=== PATIENT | male | born 1980 | race Caucasian/White ===

== ENCOUNTER 2021-02-11 23:25 | Emergency (ER) | payer OTHER ==
[~2021-02-11] VITALS: Ht 160 cm; Wt 65.8 kg
[2021-02-12] MEDS ORDERED: IBUPROFEN 800800 MG PO (01:53)
[2021-02-12] MEDS ORDERED: ACETAMINOPHEN-1 EAC2 PO (01:53)
[2021-02-12 02:08] VITALS: BP 144/101
== END 2021-02-12 02:08 | disposition home or self-care (01) ==
LOC: M.ERS 23:25
DX: S42.021A Displaced fracture of shaft of right clavicle, initial encounter for closed fracture (principal); W01.0XXA Fall on same level from slipping, tripping and stumbling without subsequent striking against object, initial encounter; Y93.89 Activity, other specified; Y92.89 Other specified places as the place of occurrence of the external cause; Y99.8 Other external cause status